=== PATIENT | female | born 1995 | race Caucasian/White ===

== ENCOUNTER 2017-01-06 09:30 | Emergency (ER) | payer BC ==
[~2017-01-06] VITALS: Ht 154.9 cm; Wt 59.4 kg
[~2017-01-06 09:30] MED LIST: AZIT500T77 PO; MORP15TA PO; ONDA4TAB7 PO; TRAM50TA2 PO
[2017-01-06] MEDS ORDERED: CLOT15CR6 EXT (10:30)
[2017-01-06] MEDS ORDERED: ONDANSETRON ODT 4 MG ONE (10:41)
[2017-01-06] MEDS ORDERED: HYDROmorphone 1 MG/ML, 1ML ONE (10:41)
[2017-01-06] MEDS ORDERED: HYDROmorphone 1 MG/ML, 1ML IM ONE (11:00)
[2017-01-06] MEDS ORDERED: ONDANSETRON ODT 4 MG PO ONE (11:00)
[2017-01-06 11:51] VITALS: BP 118/79
[2017-01-07 05:07] LABS: HSV 1 IGG TYPE SPECIFIC <0.91 index (0.00-0.90); HSV 2 IGG TYPE SPECIFIC <0.91 index (0.00-0.90)
== END 2017-01-06 12:05 | disposition home or self-care (01) ==
LOC: ED 11:50
DX: N76.0 Acute vaginitis (principal); A60.04 Herpesviral vulvovaginitis
CPT/HCPCS: 36415; 86695; 86696; 87210; 87491; 87591; 87808; 96372; 99284; J1170; Q0162